=== PATIENT | female | born 1960 | race Caucasian/White ===

== ENCOUNTER 2018-11-27 15:11 | Observation (INO) ==
[2018-11-27] MEDS ORDERED: DILTIAZEM 50 MG/10 ML VIAL IV STA (15:40)
[2018-11-27 15:46] LABS: Basophils # 0.1 10*3/uL (0.0-0.2); Basophils % 0.8 % (0.0-0.8); Eosinophils # 0.1 10*3/uL (0.0-0.87); Eosinophils % 1.4 % (0.00-10.9); Hematocrit 40.7 VOL% (35.7-47.0); Hemoglobin 13.6 GM/DL (12.0-16.0); Immature Granulocytes % 0.3 %; Immature Granulocytes Absolute 0.03 #; Lymphocytes # 2.4 10*3/uL (1.4-4.0); Lymphocytes % 26.1 % (21.3-54.2); Mean Corpuscular HGB Conc 33.4 GM/DL (32-36); Mean Corpuscular Hemoglobin 32 PG (27-34); Mean Corpuscular Volume 94.4 FL (87-102); Mean Platelet Volume 10.1 FL (9.6-12.0); Monocytes # 0.9 10*3/uL (0.11-0.8); Monocytes % 9.4 % (1.7-12.7); Neutrophils # 5.7 10*3/uL (1.4-7.4); Platelet Count 217 T/CUMM (130-400); Red Blood Count 4.31 MC/CUMM (3.8-5.5); Red Cell Distribution Width 11.9 % (9.3-17.3); White Blood Count 9.2 T/CUMM (4-12)
[2018-11-27 15:52] LABS: INR 0.9; PT Patient Result 10.1 SECS; Partial Thromboplastin Time 23.6 SECS (0-40)
[2018-11-27] MEDS ORDERED: dilTIAZem Drip 125 MG/125 ML PREMIX IV SCH (16:00)
[2018-11-27 16:10] LABS: Apearance,Urine CLEAR (Clear); Bilirubin,Urine Negative (Negative); Blood, Urine Negative (Negative); Glucose,Urine (UA) Negative (Negative); Ketones,Urine Negative (Negative); Nitrite,Urine Negative (Negative); Protein,Urine Negative; RBC,Urine <1 /HPF (0-4); Squamous Epithelial Cell,Urine Occasional /HPF (0-10); Urine Color Straw (Yellow); Urine Specific Gravity 1.005 (1.001-1.035); Urine Urobilinogen < 2.0 EU/DL (0.2-1.0); WBC,Urine 1 /HPF (0-6)
[2018-11-27 16:20] LABS: Albumin 3.5 G/DL (3.4-5.0); Bilirubin,Total 0.5 MG/DL (0.2-1.0); Calcium 8.3 MG/DL (8.5-10.1); Osmolality,Calculated 283.4 MOS/KG (273-304); Thyroid Stimulating Hormone 0.539 uIU/ml (0.358-3.74); Total Protein 6.7 G/DL (6.4-8.3)
[2018-11-27] MEDS ORDERED: PROMETHAZINE 25 MG/1 ML VIAL ONE (16:25)
[2018-11-27 16:29] LABS: Barbiturates Screen,Urine Negative (Negative); Benzodiazepines Screen,Urine Negative (Negative); Cannabinoid Screen,Urine Negative (Negative); Opiate Screen,Urine Negative (Negative); Phencyclidine Screen,Urine Negative (Negative)
[2018-11-27] MEDS ORDERED: ONDANSETRON 4 MG/2 ML VIAL IV PRN (17:17)
[2018-11-27] MEDS ORDERED: PROMETHAZINE 25 MG/1 ML VIAL IM PRN (17:17)
[2018-11-27] MEDS ORDERED: ACETAMINOPHEN 325 MG TABLET PO PRN (17:17)
[2018-11-27] MEDS ORDERED: ENOXAPARIN 80 MG/0.8 ML SYRINGE SUBCUT ONE (17:20)
[2018-11-27] MEDS ORDERED: DEXTROSE 50% 25 GM/50 ML SYRINGE IV PRN (17:26)
[2018-11-27] MEDS ORDERED: GLUCAGON 1 MG VIAL IM PRN (17:26)
[2018-11-27] MEDS ORDERED: METOPROLOL TARTRATE 50 MG TABLET PO SCH (21:00)
[2018-11-27] MEDS: OMEGA 3 ACID ETHYL ESTERS 1 GM CAPSULE PO SCH (21:01)
[2018-11-27] MEDS: CYANOCOBALAMIN 500 MCG TABLET PO SCH (21:01)
[2018-11-27] MEDS: GABAPENTIN 600 MG TABLET PO SCH (21:01)
[2018-11-27] MEDS: traMADol 50 MG TABLET PO SCH (21:02)
[2018-11-27] MEDS: SODIUM CHLORIDE 0.9% 1,000 ML IV SCH ×2 (21:02)
[2018-11-27] MEDS: INSULIN LISPRO 100 UNIT/ML SUBCUT SCH (22:32)
[2018-11-28 04:30] LABS: Basophils # 0.1 10*3/uL (0.0-0.2); Basophils % 1.3 % (0.0-0.8); Eosinophils # 0.3 10*3/uL (0.0-0.87); Eosinophils % 3.3 % (0.00-10.9); Hematocrit 38.2 VOL% (35.7-47.0); Hemoglobin 12.4 GM/DL (12.0-16.0); Immature Granulocytes % 0.3 %; Immature Granulocytes Absolute 0.02 #; Lymphocytes # 3.7 10*3/uL (1.4-4.0); Lymphocytes % 48.7 % (21.3-54.2); Mean Corpuscular HGB Conc 32.5 GM/DL (32-36); Mean Corpuscular Hemoglobin 31 PG (27-34); Mean Corpuscular Volume 96.2 FL (87-102); Mean Platelet Volume 10.3 FL (9.6-12.0); Monocytes # 0.8 10*3/uL (0.11-0.8); Monocytes % 10.3 % (1.7-12.7); Neutrophils # 2.8 10*3/uL (1.4-7.4); Neutrophils % 36.1 % (38.7-73.9); Platelet Count 196 T/CUMM (130-400); Red Blood Count 3.97 MC/CUMM (3.8-5.5); Red Cell Distribution Width 11.9 % (9.3-17.3); White Blood Count 7.6 T/CUMM (4-12)
[2018-11-28 04:56] LABS: Alanine Aminotransferase 73 U/L (13-56); Albumin 2.9 G/DL (3.4-5.0); Alkaline Phosphatase 83 U/L (45-117); Aspartate Amino Transferase 35 U/L (0-37); Bilirubin,Total < 0.39 MG/DL (0.2-1.0); Blood Urea Nitrogen 15 MG/DL (7-18); Calcium 8.3 MG/DL (8.5-10.1); Cholesterol 171 MG/DL (50-200); Glucose 139 MG/DL (74-106); HDL Cholesterol 50 MG/DL (40-60); Osmolality,Calculated 283.3 MOS/KG (273-304); Risk Ratio 3.42; Sodium 141 MMOL/L (136-145); Total Protein 6.5 G/DL (6.4-8.3); Triglycerides 107 MG/DL (2-150); VLDL CHOLESTEROL 21.4 MG/DL
[2018-11-28 05:17] LABS: Eosinophils 7 % (0-10); Hypochromasia 1+; Lymphocytes 45 % (20-55); Platelet Estimate Adequate; Segmented Neutrophils 39 % (50-85); Total Cells Counted 100
[2018-11-28 08:11] VITALS: BP 129/73
[2018-11-28] MEDS ORDERED: METOPROLOL TARTRATE 25 MG TABLET PO SCH (08:25)
[2018-11-28] MEDS: CYANOCOBALAMIN 500 MCG TABLET PO SCH (08:56)
[2018-11-28] MEDS: OMEGA 3 ACID ETHYL ESTERS 1 GM CAPSULE PO SCH (08:57)
[2018-11-28] MEDS: GABAPENTIN 600 MG TABLET PO SCH (08:57)
[2018-11-28] MEDS: traMADol 50 MG TABLET PO SCH (08:59)
[2018-11-28] MEDS: INSULIN LISPRO 100 UNIT/ML SUBCUT SCH ×2 (08:59→12:14)
[2018-11-28] MEDS ORDERED: PANTOPRAZOLE 40 MG TABLET PO SCH (09:00)
[2018-11-28] MEDS ORDERED: APIXABAN 5 MG TABLET PO SCH (09:00)
[2018-11-28] MEDS ORDERED: CALCIUM (CARBONATE)/VITAMIN D 500 MG-200 UNIT TABLET PO SCH (09:00)
[2018-11-28 11:44] LABS: Troponin I < 0.015 NG/ML (0.00-0.045)
== END 2018-11-28 12:15 | disposition home or self-care (01) ==
LOC: EDBD → EDUNIT# → N.ED 15:11 → N.EDINP 17:17 → INTOOBSV 17:17 → SUATTDRO 17:17 → N.TELEN 19:18
PROVIDERS: ADMIT Internal Medicine Nephrology; ATTEND Internal Medicine